=== PATIENT | female | born 1960 | race Caucasian/White ===

== ENCOUNTER → 2020-04-01 | Outpatient (CLI) | payer OTHER ==
[~2020-04-01] MED LIST: EVISTA60 MG PO; NARATRIPTAN HCL1 MG PO; NORTRIPTYLINE H50 MG PO
== END ==
LOC: LAB 08:31
PROVIDERS: ATTEND Family Medicine
DX: R05 Cough (principal); Z20.828 Contact with and (suspected) exposure to other viral communicable diseases